=== PATIENT | male | born 1950 | race Caucasian/White ===

== ENCOUNTER 2016-11-08 11:02 | Emergency (ER) | payer MEDICARE, BC ==
[2016-11-08] MEDS ORDERED: Sodium Chloride 0.9% 10 ML Syringe FLUSH PRN (11:29)
--- NOTE | 2016-11-08 11:58 | EDM.PDOC ---
ED HPI GENERAL MEDICAL PROBLEM - General Chief Complaint: Cardiovascular Problem Stated Complaint: Cardiac Changes Time Seen by Provider: 11/08/16 11:14 Source of Information: Reports: Patient, Family History Limitations: Reports: No Limitations - History of Present Illness INITIAL COMMENTS - FREE TEXT/NARRATIVE: Patient comes to ER by private vehicle after going to [facility] to have 48 hr Holter Monitor removed. Immediately after removal he had one of his "episodes " which was why monitor had been ordered. EKG performed at clinic prior to his coming here. Patient tells us that starting in July, he has had episodes where his chest feels funny, and he feels very weak. It can happen at rest, it can happen with activity. Episodes can be as short as 10min, or as long as an hour. During an episode, he has to sit. No pain. No SOB or sweating. No nausea/emesis. No obvious feeling or irregular heart beat. 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 These usually happen during stress and get better with a faster heart beat. One transfer coordinator once told him to "run around the block" if he felt the PVCs coming. This does not feel like PVCs. At first, he could have 10 episodes a day. They have improved. He has changed his diet a bit but otherwise no other changes. says patient gets pale during episodes. Had angiogram in August, showed only mild non-obstructive heart disease. Was placed on medication to dilate blood vessels in heart. This did not alter the episodes but gave him a headache. Patient has checked his BP at home when he is having the above symptoms and says BP is usually higher than normal at that time. 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: Reports: EKG - Related Data Allergies Allergy/AdvReac Type Severity Reaction Status Date / Time finasteride Allergy Cannot Verified 11/08/16 11:05 Remember morphine Allergy Hyperactivi Verified 11/08/16 11:05 ty Home Meds: Home Meds Acetaminophen/Diphenhydramine [Tylenol Pm Ex-Strength Caplet] 2 tab PO BEDTIME 11/08/16 [History] Aspirin 81 mg PO BRK 11/08/16 [History] Esomeprazole Magnesium [Nexium] 20 mg PO DAILY 11/08/16 [History] Metoprolol Succinate 100 mg PO DAILY 11/08/16 [History] Multivitamin [Multivitamins] 1 tab PO DAILY 11/08/16 [History] Nitroglycerin [Nitrostat] 0.4 mg SL Q5M 11/08/16 [History] Simvastatin [Simvastatin] 40 mg PO BEDTIME 11/08/16 [History] Past Medical History Cardiovascular History: Reports: Arrhythmia (PVCs), CAD, High Cholesterol, Hypertension, Other (See Below) (RBBB) Gastrointestinal History: Reports: GERD Social & Family History - Tobacco Use Smoking Status *Q: Never Smoker - Alcohol Use Alcohol Use History: No Days Per Week of Alcohol Use: 0 - Recreational Drug Use Recreational Drug Use: No Drug Use in Last 12 Months: No ED ROS GENERAL - Review of Systems Review Of Systems: See Below Constitutional: Reports: Weakness, Fatigue. Denies: Fever, Chills, Night Sweats , Diaphoresis, Decreased Appetite, Weight Loss HEENT: Reports: No Symptoms Respiratory: Reports: No Symptoms Cardiovascular: Reports: Lightheadedness (durin episodes), Other (unusual sensation in chest during episodes). Denies: Chest Pain, Dyspnea on Exertion, Edema, Orthopnea, Palpitations Endocrine: Reports: No Symptoms GI/Abdominal: Reports: No Symptoms : Reports: No Symptoms Musculoskeletal: Reports: No Symptoms Skin: Reports: No Symptoms Neurological: Reports: Weakness. Denies: Confusion, Headache, Numbness, Paresthesia, Seizure, Syncope, Tingling, Trouble Speaking, Difficulty Walking, Change in Speech, Gait Disturbance Psychiatric: Reports: No Symptoms Hematologic/Lymphatic: Reports: No Symptoms ED EXAM, GENERAL - Physical Exam Exam: See Below General Appearance: Alert, WD/WN, No Apparent Distress Eye Exam: Bilateral Eye: EOMI, PERRL Ears: Normal External Exam, Normal Canal, Hearing Grossly Normal, Normal TMs Nose: Normal Inspection Throat/Mouth: Normal Inspection, Normal Lips, Normal Gums, Normal Oropharynx, Normal Voice, No Airway Compromise Head: Atraumatic, Normocephalic Neck: Normal Inspection, Supple, Non-Tender, Full Range of Motion. No: Carotid Bruit, Lymphadenopathy (L), Lymphadenopathy (R) Respiratory/Chest: No Respiratory Distress, Lungs Clear, Normal Breath Sounds, No Accessory Muscle Use Cardiovascular: Regular Rate, Rhythm, No Murmur, Bradycardia Peripheral Pulses: 2+: Radial (L), Radial (R) GI/Abdominal: Normal Bowel Sounds, Soft, Non-Tender, No Distention (Male) Exam: Deferred Rectal (Males) Exam: Deferred Back Exam: No: CVA Tenderness (L), CVA Tenderness (R), Muscle Spasm, Paraspinal Tenderness, Vertebral Tenderness Extremities: Normal Inspection, Normal Range of Motion, Non-Tender, No Pedal Edema, Normal Capillary Refill Neurological: Alert, Oriented, Normal Cognition, Normal Gait, No Motor/Sensory Deficits Psychiatric: Normal Affect, Normal Mood Skin Exam: Warm, Dry, Intact, Normal Color EKG INTERPRETATION EKG Date: 11/08/16 Time: 11:06 Rhythm: Other (Sinus Bradycardia) Rate (Beats/Min): 50 [place]: LAD-Left [place] Deviation P-Wave: Present QRS: RBBB ST-T: Normal QT: Normal Comparison: No Change EKG Interpretation Comments: EKG from previous visit, as well as the two EKGs performed at [facility], all similar. No change noted overall. Patient symptomatic while at [facility]. Had improved by time he came to ER. Course - Vital Signs Last Recorded V/S: Last Vital Signs Temp 36.6 C 11/08/16 11:05 Pulse 51 L 11/08/16 12:50 Resp 18 11/08/16 12:50 BP 124/99 H 11/08/16 12:50 Pulse Ox 99 11/08/16 12:50 - Orders/Labs/Meds Orders: Active Orders 24 hr Category Date Time Status EKG Documentation Completion [RC] ASDIRECTED Care 11/08/16 11:30 Active Chest 2V [CR] Stat Exams 11/08/16 11:31 Taken LYME/B.BURGDORFERI IGG/IGM [REF] Stat Lab 11/08/16 11:30 Received Saline Lock Insert [OM.PC] Stat Oth 11/08/16 11:30 Ordered Labs: Laboratory Tests 11/08/16 11/08/16 11/08/16 Range/Units 11:25 11:25 11:25 WBC 6.5 (4.0-10.2) K/uL RBC 5.33 (4.33-5.41) M/uL Hgb 16.1 (13.1-16.8) g/dL Hct 48.8 (39.0-49.0) % MCV 91.6 D (84.0-98.0) fL MCH 30.2 (28.2-33.3) pg MCHC 33.0 (31.7-36.0) g/dL RDW 13.8 (11.2-14.1) % Plt Count 153 (150-350) K/uL Neut % (Auto) 61.6 (45.0-80.0) % Lymph % (Auto) 24.0 (10.0-50.0) % Cloud % (Auto) 10.5 (2.0-14.0) % Eos % (Auto) 3.1 (0.0-5.0) % Baso % (Auto) 0.8 (0.0-2.0) % Neut # (Auto) 3.98 (1.40-7.00) K/uL Lymph # (Auto) 1.55 (0.50-3.50) K/uL Cloud # (Auto) 0.68 (0.00-1.00) K/uL Eos # (Auto) 0.20 (0.00-0.50) K/uL Baso # (Auto) 0.05 (0.00-0.20) K/uL PT (9.8-11.7) SEC INR D-Dimer, Quantitative 145 (0-400) ng/mL Sodium 140 (136-145) mmol/L Potassium 4.5 (3.5-5.1) mmol/L Chloride 105 (98-107) mmol/L Carbon Dioxide 28.7 (21.0-32.0) mmol/L BUN 17 (7-18) mg/dL Creatinine 0.74 (0.51-1.17) mg/dL Est Cr Clr Drug Dosing 100.02 mL/min Estimated GFR (MDRD) > 60 mL/min Glucose 101 (74-106) mg/dL Calcium 9.1 (8.5-10.1) mg/dL Total Bilirubin 0.7 (0.2-1.0) mg/dL AST 24 (15-37) U/L ALT 28 (12-78) U/L Alkaline Phosphatase 82 (46-116) IU/L Creatine Kinase 55 (26-308) U/L Creatine Kinase Index 0.5 (0.0-2.5) % CK-MB (CK-2) 0.30 (0.00-3.60) ng/mL Troponin I 0.000 (0.000-0.056) ng/mL Flx-O-Tfpytcltauk Pept 75 (0-125) pg/mL Total Protein 7.8 (6.4-8.2) g/dL Albumin 4.1 (3.4-5.0) g/dL Specimen Type Urine Color Urine Appearance Urine pH (5.0-9.0) Ur Specific Sigel (1.005-1.030) Urine Protein (NEGATIVE) mg/dL Urine Glucose (UA) (NEGATIVE) mg/dL Urine Ketones (NEGATIVE) mg/dL Urine Occult Blood (NEGATIVE) Urine Nitrite (NEGATIVE) Urine Bilirubin (NEGATIVE) Urine Urobilinogen (0.2-1.0) E.U./dL Ur Leukocyte Esterase (NEGATIVE) Urine RBC /HPF Urine WBC /HPF Ur Epithelial Cells /LPF Urine Bacteria (NONE TO FEW) /HPF 11/08/16 11/08/16 Range/Units 11:25 12:20 WBC (4.0-10.2) K/uL RBC (4.33-5.41) M/uL Hgb (13.1-16.8) g/dL Hct (39.0-49.0) % MCV (84.0-98.0) fL MCH (28.2-33.3) pg MCHC (31.7-36.0) g/dL RDW (11.2-14.1) % Plt Count (150-350) K/uL Neut % (Auto) (45.0-80.0) % Lymph % (Auto) (10.0-50.0) % Cloud % (Auto) (2.0-14.0) % Eos % (Auto) (0.0-5.0) % Baso % (Auto) (0.0-2.0) % Neut # (Auto) (1.40-7.00) K/uL Lymph # (Auto) (0.50-3.50) K/uL Cloud # (Auto) (0.00-1.00) K/uL Eos # (Auto) (0.00-0.50) K/uL Baso # (Auto) (0.00-0.20) K/uL PT 11.5 (9.8-11.7) SEC INR 1.1 D-Dimer, Quantitative (0-400) ng/mL Sodium (136-145) mmol/L Potassium (3.5-5.1) mmol/L Chloride (98-107) mmol/L Carbon Dioxide (21.0-32.0) mmol/L BUN (7-18) mg/dL Creatinine (0.51-1.17) mg/dL Est Cr Clr Drug Dosing mL/min Estimated GFR (MDRD) mL/min Glucose (74-106) mg/dL Calcium (8.5-10.1) mg/dL Total Bilirubin (0.2-1.0) mg/dL AST (15-37) U/L ALT (12-78) U/L Alkaline Phosphatase (46-116) IU/L Creatine Kinase (26-308) U/L Creatine Kinase Index (0.0-2.5) % CK-MB (CK-2) (0.00-3.60) ng/mL Troponin I (0.000-0.056) ng/mL Qht-C-Kouwvvdwffo Pept (0-125) pg/mL Total Protein (6.4-8.2) g/dL Albumin (3.4-5.0) g/dL Specimen Type Urinblad Urine Color Yellow Urine Appearance Clear Urine pH 7.0 (5.0-9.0) Ur Specific [place] 1.010 (1.005-1.030) Urine Protein Negative (NEGATIVE) mg/dL Urine Glucose (UA) Negative (NEGATIVE) mg/dL Urine Ketones Negative (NEGATIVE) mg/dL Urine Occult Blood Negative (NEGATIVE) Urine Nitrite Negative (NEGATIVE) Urine Bilirubin Negative (NEGATIVE) Urine Urobilinogen 0.2 (0.2-1.0) E.U./dL Ur Leukocyte Esterase Negative (NEGATIVE) Urine RBC 0-5 /HPF Urine WBC 0-5 /HPF Ur Epithelial Cells Rare /LPF Urine Bacteria Rare (NONE TO FEW) /HPF Meds: Medications Discontinued Medications Generic Name Dose Route Start Last Admin Trade Name Freq PRN Reason Stop Dose Admin Sodium Chloride 10 ml 11/08/16 11:29 Saline Flush FLUSH ASDIRECTED PRN Keep Vein Open - Radiology Interpretation Free Text/Narrative:: Chest xray: no focal acute changes noted. - Re-Assessments/Exams Free Text/Narrative Re-Assessment/Exam: 11/08/16 12:31 Patient continued to remain improved while in ER. Labs, exam, chest film overall unremarkable. EKGs did not show acute change. Patient has persistent bradycardia and RBBB. This is not new. KENDRA Duenas from [facility], did contact on-call transfer coordinator at [facility], . advised that patient could be able to go home from ER once cleared via ER cardiac protocol. At this time, cause for patient's episodes remains unclear. Cannot rule out symptomatic bradycardia however. Patient has not noticed lower than usual pulse when he is not feeling well. However it may prove useful for him to trial cutting back Metoprolol to see if this has any impact on complaint. He is to discuss this option with his regular provider. Cannot rule out neurologic component. Lyme panel requested. Patient is to follow up with primary provider. May benefit from longer term cardiac rehabilitation specialist. 12:54 UA normal. Patient remained asymptomatic at time of discharge. Departure - Departure Time of Disposition: 12:51 Disposition: Home, Self-Care 01 Condition: Good Clinical Impression: Bradycardia, Episodic weakness Instructions: Bradycardia Referrals: Tanisha Parker, SC[facility] SHIFTER [Primary Care Provider] - Forms: ED Department Discharge Additional Instructions: Follow up with your primary provider. Consider cutting dose of Metoprolol in half for several weeks and see if this has any impact on your episodes. Continue to take pulse and BP any time you have an episode and record it. If you have sudden worsening symptoms, follow up in ER again. - My Orders Last 24 Hours: My Active Orders 11/08/16 11:30 EKG Documentation Completion [RC] ASDIRECTED LYME/B.BURGDORFERI IGG/IGM [REF] Stat Saline Lock Insert [OM.PC] Stat 11/08/16 11:31 Chest 2V [CR] Stat - Assessment/Plan Last 24 Hours: My Active Orders 11/08/16 11:30 EKG Documentation Completion [RC] ASDIRECTED LYME/B.BURGDORFERI IGG/IGM [REF] Stat Saline Lock Insert [OM.PC] Stat 11/08/16 11:31 Chest 2V [CR] Stat
[2016-11-08 12:24] LABS: CHLORIDE,CL 105 mmol/L (98-107); SODIUM,NA 140 mmol/L (136-145)
[2016-11-08 12:55] VITALS: BP 124/99
== END 2016-11-08 13:05 | disposition home or self-care (01) ==
LOC: SUPCPDRO 11:02 → LL.ED 11:02
DX: R00.1 Bradycardia, unspecified (principal); K21.9 Gastro-esophageal reflux disease without esophagitis; E78.00 Pure hypercholesterolemia, unspecified; I10 Essential (primary) hypertension; Z79.82 Long term (current) use of aspirin; Z88.5 Allergy status to narcotic agent; Z79.899 Other long term (current) drug therapy
CPT/HCPCS: 36000; 36415; 71020; 80053; 81001; 82550; 82553; 83880; 84484; 85025; 85379; 85610; 86618; 93005; 99284

== ENCOUNTER → 2019-02-05 | Outpatient (CLI) | payer MEDICARE, BC | LOC: LL.US 08:30 | PROVIDERS: ATTEND Nurse Practitioner | DX: I65.22 Occlusion and stenosis of left carotid artery (principal); N40.1 Benign prostatic hyperplasia with lower urinary tract symptoms; R33.8 Other retention of urine | CPT/HCPCS: 76857; 93880 ==

== ENCOUNTER 2021-04-03 19:32 | Emergency (ER) | payer MEDICARE, OTHER ==
[2021-04-03 19:35] VITALS: BP 167/75; PULSE 64
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
[2021-04-03 20:19] LABS: ANION GAP 8.7 meq/L (7-15); CHLORIDE,CL 105 mmol/L (98-107); SODIUM,NA 141 mmol/L (136-145)
[2021-04-03 20:37] LABS: CORONAVIRUS COVID-19 NAA NEGATIVE (NEGATIVE); RESPIRATORY SYNCYTIAL VIR NAA NEGATIVE (NEGATIVE)
== END 2021-04-03 21:35 | disposition home or self-care (01) ==
LOC: LL.ED 19:32
DX: J40 Bronchitis, not specified as acute or chronic (principal); H10.89 Other conjunctivitis; J06.9 Acute upper respiratory infection, unspecified; I10 Essential (primary) hypertension; E78.00 Pure hypercholesterolemia, unspecified; N40.0 Benign prostatic hyperplasia without lower urinary tract symptoms; E78.5 Hyperlipidemia, unspecified; K21.9 Gastro-esophageal reflux disease without esophagitis; Z79.899 Other long term (current) drug therapy; Z79.82 Long term (current) use of aspirin; Z20.822 Contact with and (suspected) exposure to COVID-19
CPT/HCPCS: 0241U; 36415; 71046; 80053; 83880; 84484; 85025; 85379; 93005; 93010; 99284; 99284-25

== ENCOUNTER 2022-10-12 09:14 | Day surgery (SDC) | payer MEDICARE ==
[~2022-10-12 09:14] MED LIST: Propofol 200 MG/20 ML SDV ONE
[2022-10-12] MEDS ORDERED: Sodium Chloride 0.9% 10 ML Syringe FLUSH PRN (09:28)
[2022-10-12] MEDS ORDERED: Lactated Ringers 1,000 ML IV SCH (09:30)
[2022-10-13 13:42] VITALS: PULSE 50
[2022-10-13 13:43] VITALS: BP 153/75
== END 2022-10-12 12:00 | disposition home or self-care (01) ==
LOC: LL.SDS 09:14
PROVIDERS: ATTEND Surgery
DX: D12.2 Benign neoplasm of ascending colon (principal); E78.5 Hyperlipidemia, unspecified; G47.33 Obstructive sleep apnea (adult) (pediatric); K21.9 Gastro-esophageal reflux disease without esophagitis; M19.042 Primary osteoarthritis, left hand; N40.1 Benign prostatic hyperplasia with lower urinary tract symptoms; R39.14 Feeling of incomplete bladder emptying; I25.10 Atherosclerotic heart disease of native coronary artery without angina pectoris; I49.3 Ventricular premature depolarization; Z79.82 Long term (current) use of aspirin; Z79.899 Other long term (current) drug therapy; Z88.5 Allergy status to narcotic agent
CPT/HCPCS: 00811; J2704; J7120

== ENCOUNTER 2022-11-07 08:36 | Emergency (ER) | payer MEDICARE ==
[2022-11-07] MEDS ORDERED: Sodium Chloride 0.9% 10 ML Syringe FLUSH PRN (08:46)
[2022-11-07 09:00] LABS: BASOPHILS ABSOLUTE AUTO 0.03 K/uL (0.00-0.20); BASOPHILS PERCENT AUTO 0.3 % (0.0-2.0); EOSINOPHILS ABSOLUTE AUTO 0.17 K/uL (0.00-0.50); EOSINOPHILS PERCENT AUTO 1.7 % (0.0-5.0); HEMATOCRIT 46.7 % (39.0-49.0); HEMOGLOBIN 15.8 g/dL (13.1-16.8); LYMPHOCYTES ABSOLUTE AUTO 1.73 K/uL (0.50-3.50); MEAN CORPUSCULAR HEMOGLOBIN 30.2 pg (28.2-33.3); MEAN CORPUSCULAR HGB CONC 33.8 g/dL (31.7-36.0); MEAN CORPUSCULAR VOLUME 89.1 fL (84.0-98.0); MONOCYTES ABSOLUTE AUTO 1.01 K/uL (0.00-1.00); MONOCYTES PERCENT AUTO 9.9 % (2.0-14.0); NEUTROPHILS ABSOLUTE AUTO 7.25 K/uL (1.40-7.00); NEUTROPHILS PERCENT AUTO 71.1 % (45.0-80.0); PLATELET COUNT,PLT 149 K/uL (150-350); RED BLOOD CELL COUNT 5.24 M/uL (4.33-5.41); RED CELL DISTRIBUTION WIDTH 13.8 % (11.2-14.1); WHITE BLOOD CELL COUNT,WBC 10.2 K/uL (4.0-10.2)
[2022-11-07 09:27] LABS: ALBUMIN 3.8 g/dL (3.4-5.0); CALCIUM 9.5 mg/dL (8.5-10.1); CREATININE 1.04 mg/dL (0.51-1.17); EST CRCL DRUG DOSING (CG) 69.43 mL/min; POTASSIUM,K 3.9 mmol/L (3.5-5.1); PROTEIN TOTAL,TP 7.4 g/dL (6.4-8.2)
[2022-11-07] MEDS ORDERED: Sodium Chloride 0.9% 1,000 ML IV ONE (10:08)
[2022-11-07] MEDS ORDERED: Iopamidol 612 MG/ML 100 ML Bottle IVPUSH STA (10:20)
[2022-11-07] MEDS ORDERED: Ondansetron 4 MG/2 ML SDV ONE (10:34)
[2022-11-07] MEDS ORDERED: Ondansetron 4 MG/2 ML SDV IVPUSH ONE (10:43)
[2022-11-07 11:22] VITALS: PULSE 64
[2022-11-07] MEDS ORDERED: Ciprofloxacin 500 MG Tab PO ONE (11:25)
[2022-11-07 11:58] VITALS: BP 144/88
== END 2022-11-07 11:55 | disposition home or self-care (01) ==
LOC: LL.ED 08:36
DX: R19.7 Diarrhea, unspecified (principal); K52.9 Noninfective gastroenteritis and colitis, unspecified; E78.00 Pure hypercholesterolemia, unspecified; K21.9 Gastro-esophageal reflux disease without esophagitis; I10 Essential (primary) hypertension; Z79.899 Other long term (current) drug therapy; Z88.5 Allergy status to narcotic agent
CPT/HCPCS: 36415; 74177; 80053; 83690; 85025; 96361; 96374; 99284; 99284-25; A9270-GY; J2405; J7030; Q9967

== ENCOUNTER 2025-02-13 13:35 | Emergency (ER) | payer MEDICARE ==
[2025-02-13 13:38] VITALS: BP 157/82; PULSE 68
[2025-02-13] MEDS: Diphtheria,Pertussis(Acell),Tetanus Vaccine 0.5 ML Syringe IM ONE (14:29)
[2025-02-13] MEDS: Bacitracin Oint 1 GM U/D Packet TOP ONE (14:32)
[2025-02-13] MEDS: Bacitracin Oint 1 GM U/D Packet ONE (14:32)
== END 2025-02-13 14:52 | disposition home or self-care (01) ==
LOC: LL.ED 13:35
DX: S61.422A Laceration with foreign body of left hand, initial encounter (principal); I10 Essential (primary) hypertension; E78.00 Pure hypercholesterolemia, unspecified; M19.90 Unspecified osteoarthritis, unspecified site; Z79.899 Other long term (current) drug therapy; Z88.8 Allergy status to other drugs, medicaments and biological substances; Z23 Encounter for immunization; W31.2XXA Contact with powered woodworking and forming machines, initial encounter
CPT/HCPCS: 12042; 90471; 90715; 99282-25; J2003

== ENCOUNTER 2025-02-27 12:02 | Emergency (ER) | payer MEDICARE ==
[2025-02-27 18:44] VITALS: BP 152/69; PULSE 60
== END 2025-02-27 12:30 | disposition home or self-care (01) ==
LOC: LL.ED 12:02
DX: S61.412D Laceration without foreign body of left hand, subsequent encounter (principal); I10 Essential (primary) hypertension; E78.00 Pure hypercholesterolemia, unspecified; Z88.5 Allergy status to narcotic agent; Z79.82 Long term (current) use of aspirin; Z79.899 Other long term (current) drug therapy; X58.XXXD Exposure to other specified factors, subsequent encounter
CPT/HCPCS: 87070; 87205; 99283